=== PATIENT | female | born 1985 | race Two or more races ===

== ENCOUNTER → 2019-03-23 | Outpatient (CLI) | payer MEDICAID | END | disposition home or self-care (01) | LOC: RAD 16:43 | DX: Z34.82 Encounter for supervision of other normal pregnancy, second trimester (principal); Z3A.25 25 weeks gestation of pregnancy | CPT/HCPCS: 76805 ==

== ENCOUNTER 2019-05-17 10:55 | Observation (INO) | payer MEDICAID ==
[~2019-05-17] VITALS: Ht 165.1 cm; Wt 60.0 kg
[2019-05-17] MEDS ORDERED: ACETAMINOPHEN 325MG TABLET PO STA (12:18)
[2019-05-17 12:42] LABS: COLOR URINE YELLOW (YELLOW); KETONES URINE TRACE (NEGATIVE); LEUKOCYTE ESTERASE URINE NEGATIVE (NEGATIVE); NITRITE URINE NEGATIVE (NEGATIVE); OCCULT BLOOD URINE NEGATIVE (NEGATIVE); PROTEIN URINE TRACE (NEGATIVE); SPECIFIC GRAVITY URINE 1.024 (1.005-1.030)
[2019-05-17 12:43] VITALS: BP 100/62
[2019-05-17 12:51] LABS: CLARITY URINE HAZY (CLEAR)
== END 2019-05-17 15:15 | disposition home or self-care (01) ==
LOC: ER 10:58 → 8EST NSY 14:22 → OB TRIAGE 14:25
PROVIDERS: ADMIT Obstetrics & Gynecology; ATTEND Obstetrics & Gynecology
DX: O26.893 Other specified pregnancy related conditions, third trimester (principal); M76.01 Gluteal tendinitis, right hip; R10.11 Right upper quadrant pain; Z3A.32 32 weeks gestation of pregnancy
CPT/HCPCS: 81003; 99281; G0378